=== PATIENT | female | born 2000 | race Caucasian/White ===

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

== ENCOUNTER → 2022-07-29 18:45 | Observation (INO) | END | disposition home or self-care (01) | LOC: 1NENULAB | PROVIDERS: ADMIT Obstetrics & Gynecology; ATTEND Obstetrics & Gynecology ==

== ENCOUNTER 2022-07-30 03:54 | Inpatient (IN) ==
[2022-07-30] MEDS ORDERED: Naloxone 0.4 MG/ML INJ IVP PRN (04:03)
[2022-07-30] MEDS ORDERED: *HR* Nalbuphine 10 MG/ML AMPUL IV PRN (04:03)
[2022-07-30] MEDS ORDERED: Lidocaine 1% 20 ML MDV INFILT PRN (04:03)
[2022-07-30] MEDS ORDERED: Metoclopramide 10 MG/2 ML VIAL IVP PRN (04:03)
[2022-07-30] MEDS ORDERED: Famotidine 20 MG/2 ML VIAL IVP PRN (04:03)
[2022-07-30] MEDS ORDERED: Ringers Solution, Lactated 1,000 ML IVC SCH (04:15)
[2022-07-30] MEDS ORDERED: Penicillin G Potassium 5,000,000 UNIT in 0.9 % Sodium Chloride Mini Bag 100 ML IVPB ONE (04:46)
[2022-07-30 04:47] LABS: Basophils % 0.3 %; Eosinophils # 0.1 K/mcL (0.0-0.6); Eosinophils % 0.7 %; Hematocrit 33.2 % (35.3-44.9); Immature Granulocytes % 0.5 % (0-4); Lymphocytes % 22.4 %; Mean Corpuscular HGB Conc 33.1 g/dL (31.6-35.5); Mean Corpuscular Hemoglobin 28.6 pg (28.0-33.3); Mean Corpuscular Volume 86.2 fL (83.0-100.0); Mean Platelet Volume 10.6 fL (9.4-12.4); Monocytes # 0.5 K/mcL (0.0-1.3); Monocytes % 6.2 %; Neutrophils # 6.1 K/mcL (1.6-8.9); Platelet Count 276 K/mcL (140-400); Red Blood Count 3.85 M/mcL (3.82-4.97); Red Cell Distribution Width 13.4 % (11.5-14.5); Segmented Neutrophils % 69.9 %; White Blood Count 8.8 K/mcL (4.3-11.1)
[2022-07-30 04:56] LABS: Amphetamine Screen,Urine Negative ng/mL (Cutoff=1000); Barbiturate Screen,Urine Negative ng/mL (Cutoff=200); Benzodiazepines Screen,Urine Negative ng/mL (Cutoff=200); Cannabinoid Screen,Urine Negative ng/mL (Cutoff = 50); Cocaine Screen,Urine Negative ng/mL (Cutoff= 300); Opiate Screen,Urine Negative ng/mL (Cutoff=300); Phencyclidine Screen,Urine Negative ng/mL (Cutoff=25)
[2022-07-30] MEDS ORDERED: miSOPROStoL 25 MCG TABLET PO ONE (07:58)
[2022-07-30] MEDS ORDERED: *HR* FentaNYL (PF) 100 MCG/2 ML VIAL EP ONE (08:45)
[2022-07-30] MEDS ORDERED: Epidural Premix (fent/bupiv) 110 ML EP SCH (08:45)
[2022-07-30] MEDS ORDERED: EPHEDrine sulfate 50 MG/10 ML VIAL IVP PRN (08:45)
[2022-07-30] MEDS: Penicillin G Potassium 2,500,000 UNIT/105 ML MLS IVPB SCH ×3 (09:14→17:25)
[2022-07-30] MEDS ORDERED: Oxytocin 30 UNIT/503 ML BAG IVC SCH ×2 (13:00→21:51)
[2022-07-30] MEDS ORDERED: Ropivacaine/PF 0.2% 20 ML VIAL ONE (13:10)
[2022-07-30] MEDS ORDERED: *HR* FentaNYL (PF) 100 MCG/2 ML VIAL ONE ×2 (13:10→17:36)
[2022-07-30] MEDS ORDERED: *HR* Ropivacaine/PF 0.5% 20 ML VIAL ONE (17:36)
[2022-07-30] MEDS ORDERED: Ibuprofen 600 MG TABLET PO ONE (19:28)
[2022-07-30] MEDS ORDERED: Lanolin 7 G OINT...G. TP PRN (21:51)
[2022-07-30] MEDS ORDERED: Rho Immune Globulin 1,500 UNIT SYRINGE IM PRN (21:51)
[2022-07-30] MEDS ORDERED: Measles/Mumps/Rubella Vacc 0.5 ML VIAL SQ PRN (21:51)
[2022-07-30] MEDS ORDERED: Benzocaine/Menthol 56 GM AEROSOL SPRAY TP PRN (21:51)
[2022-07-30] MEDS ORDERED: Ondansetron ODT 4 MG TAB.RAPDIS SL PRN (21:51)
[2022-07-30] MEDS: Acetaminophen 325 MG TABLET PO SCH (22:48)
[2022-07-30] MEDS: Ibuprofen 600 MG TABLET PO SCH (22:48)
[2022-07-31 04:52] LABS: Basophils % 0.2 %; Eosinophils % 0.2 %; Hematocrit 31.4 % (35.3-44.9); Hemoglobin 10.1 g/dL (11.5-15.4); Immature Granulocytes % 0.4 % (0-4); Lymphocytes # 1.8 K/mcL (0.6-4.6); Lymphocytes % 14.7 %; Mean Corpuscular HGB Conc 32.2 g/dL (31.6-35.5); Mean Corpuscular Hemoglobin 27.7 pg (28.0-33.3); Mean Platelet Volume 10.8 fL (9.4-12.4); Monocytes # 0.7 K/mcL (0.0-1.3); Monocytes % 5.2 %; Neutrophils # 9.8 K/mcL (1.6-8.9); Platelet Count 221 K/mcL (140-400); Red Blood Count 3.65 M/mcL (3.82-4.97); Red Cell Distribution Width 13.6 % (11.5-14.5); Segmented Neutrophils % 79.3 %; White Blood Count 12.4 K/mcL (4.3-11.1)
[2022-07-31 07:07] VITALS: O2SAT 98
[2022-07-31 07:13] VITALS: TEMP 98.1
[2022-07-31] MEDS: Acetaminophen 325 MG TABLET PO SCH (07:44)
[2022-07-31] MEDS: Ibuprofen 600 MG TABLET PO SCH (07:45)
[2022-07-31] MEDS ORDERED: Prenatal Vit/FA 1 EACH TABLET PO SCH (09:00)
[2022-07-31] MEDS ORDERED: [UNRECOGNIZED DRUG - REMARK] PO SCH (09:00)
[2022-07-31 16:41] VITALS: BP 127/81; PULSE 76
== END 2022-07-31 19:55 | disposition home or self-care (01) | DRG 788 ==
LOC: 1NENULAB 03:54 → 1NENUOBS 21:41
PROVIDERS: ADMIT Student in an Organized Health Care Education/Training Program; ATTEND Student in an Organized Health Care Education/Training Program